=== PATIENT | male | born 1980 | race Caucasian/White ===

== ENCOUNTER 2017-07-28 16:27 | Emergency (ER) | payer SELFPAY ==
[~2017-07-28] VITALS: Ht 180.3 cm; Wt 79.4 kg
[~2017-07-28 16:27] MED LIST: DOCU-109 PO; IBUP-1027 PO
[2017-07-28 16:32] VITALS: BP 115/58
[2017-07-28] MEDS ORDERED: HYDROcodone/APAP 5/325MG 1 TAB TABLET PO ONE (17:00)
[2017-07-28] MEDS ORDERED: LIDOCAINE 1% / SOD BICARB 8.4% 20 ML VIAL. IJ ONE (17:00)
--- NOTE | 2017-07-28 17:33 | PHYS DOC ---
Past Medical History Past Medical History: No Pertinent History Past Surgical History: Other Additional Past Surgical Histo: TRAP DOOR SURGERY,HERNIA Alcohol Use: Heavy Additional Information: drinks daily Drug Use: None Adult General Chief Complaint Chief Complaint: LACERATION/AVULSION HPI HPI Patient is a 37 year old right-handed male who presents with a laceration on the right hand. Patient states he was working underneath his truck would no lights and something cut him. Review of Systems Review of Systems Constitutional: Denies fever or chills [] Musculoskeletal: Denies back pain or joint pain [] Integument: laceration on the right hand. Neurologic: Denies headache, focal weakness or sensory changes [] All other systems were reviewed and found to be within normal limits, except as documented in this note. Current Medications Current Medications Current Medications Medications (Trade) Dose Ordered Sig/Deuce Start Time Stop Time Status Last Admin Dose Admin Acetaminophen/ Hydrocodone Bitart (Lortab 5/325) 1 tab 1X ONCE 07/28/17 17:00 07/28/17 17:01 DC 07/28/17 17:02 1 TAB Lidocaine/Sodium Bicarbonate (Buffered Lidocaine 1%) 20 ml 1X ONCE 07/28/17 17:00 07/28/17 17:01 DC 07/28/17 17:03 20 ML Allergies Allergies Allergies Coded Allergies Type Severity Reaction Last Updated Verified No Known Drug Allergies 06/05/14 No Physical Exam Physical Exam Constitutional: Well developed, well nourished, no acute distress, non-toxic appearance. [] Skin: Warm, webspace between the thumb and the index finger with a laceration approximately 3 cm long with no tendon involvement. Full range of motion to the right thumb and index finger including flexion and extension of the thumb at the PIP and DIP joints as well as the index finger at the MIP PIP and DIP joints. Adequate radial sensation to the right thumb and index finger. +2 right radial pulse. Cap refill less than 2 seconds the right fingers. Back: No tenderness, no CVA tenderness. [] Extremities: No tenderness, no cyanosis, no clubbing, ROM intact, no edema. [] Neurologic: Alert and oriented X 3, normal motor function, normal sensory function, no focal deficits noted. [] Psychologic: Affect normal, judgement normal, mood normal. [] Current Patient Data Vital Signs Vital Signs Date Time Temp Pulse Resp B/P (MAP) Pulse Ox O2 Delivery O2 Flow Rate FiO2 07/28/17 17:02 16 98 Room Air 07/28/17 16:32 97.6 63 115/58 (77) 97.6 EKG EKG [] Radiology/Procedures Radiology/Procedures Indication: Laceration between the webspace of the thumb and index finger Procedure: The patient was placed in the appropriate position and anesthesia around the laceration was 1% buffered lidocaine, the laceration was explored for foreign objects, none was found. The laceration was cleaned with the 100 ML of normal saline and Betadine. The laceration was closed with 6 interrupted sutures using 4. 0 Ethilon. The wound was covered with nonstick dressing. Total repaired wound length: Approximately 3 cm Other Items: none The patient tolerated the procedure well Complications: none Course & Med Decision Making Course & Med Decision Making Pertinent Labs and Imaging studies reviewed. (See chart for details) Patient has right hand laceration, right hand x-rays interpreted by Dr. Kumari negative for any acute findings. Laceration was closed with stitches as noted in procedures. Tetanus is up-to-date. Provided wound care instructions as well as return precautions. Dragon Disclaimer Dragon Disclaimer This electronic medical record was generated, in whole or in part, using a voice recognition dictation system. Departure Departure Impression: Primary Impression: Laceration of right hand Disposition: 01 HOME, SELF-CARE Condition: STABLE Referrals: NO PCP (PCP) follow up with the Ed or your doctor in 7-10 days for suture removal Patient Instructions: Laceration Care, Adult Additional Instructions: You were seen with right hand laceration which was closed with stitches. Keep the area clean and dry. You can shower. Apply Neosporin to the area twice a day. Monitor the area for signs and symptoms of infection including but not limited to increased redness to the area, yellow drainage from the area, warmth to the area and return to the ED or see your doctor if they occur. Follow-up with your primary care physician or the emergency room in 7-10 days for suture removal. Problem Qualifiers Primary Impression: Laceration of right hand Encounter type: initial encounter Foreign body presence: without foreign body Qualified Codes: S61.411A - Laceration without foreign body of right hand , initial encounter MADHU ROLAND [employer] Jul 28, 2017 17:33
--- NOTE | 2017-07-29 08:30 | RAD ---
Clinical History: Cut between first and second digit AP, lateral and oblique views were obtained. Previous studies: none The visualized osseous structures appear normal. There is no radiopaque foreign body. Impression: No acute findings.
== END 2017-07-28 17:36 | disposition home or self-care (01) ==
LOC: ER 16:27
DX: S61.411A Laceration without foreign body of right hand, initial encounter (principal); F10.20 Alcohol dependence, uncomplicated; W45.8XXA Other foreign body or object entering through skin, initial encounter; Y93.89 Activity, other specified; Y99.8 Other external cause status; Y92.89 Other specified places as the place of occurrence of the external cause
CPT/HCPCS: 12002; 73130; 99284